=== PATIENT | female | born 1990 | race Caucasian/White ===

== ENCOUNTER 2018-09-10 06:18 | Day surgery (SDC) | payer BC, OTHER ==
[2018-09-05 09:25] VITALS: BMI 25.3
--- NOTE | 2018-09-09 20:19 | P.HPOB ---
History of Present Illness H&P Date: 09/09/18 Chief Complaint: SANTY III This is a 28 y.o. female, 2, para 2 who presents for loop electrocautery excision procedure with colposcopy due to SANTY III found on colposcopy in the office. Her pap smear on 06/04/2018 showed LGSIL. She underwent colposcopy on 07/19/2018 that showed negative ECC and SANTY II-III on biopsy at 8 o'clock. Based on these findings, she has elected to undergo LEEP/colposcopy. OB Hx: . History of 2 vaginal deliveries. 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 has had vasectomy. Social Hx: . 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 Review of Systems Constitutional: Denies chills, Denies fever Eyes: denies blurred vision, denies pain Ears, nose, mouth and throat: Denies headache, Denies sore throat Cardiovascular: Denies chest pain, Denies shortness of breath Respiratory: Denies cough Genitourinary: Reports dysmenorrhea, Denies dysuria, Denies hematuria Musculoskeletal: Denies myalgias Integumentary: Denies pruritus, Denies rash Neurological: Denies numbness, Denies weakness Psychiatric: Reports anxiety, Reports irritability Past Medical History Past Medical History: No Reported History History of Any Multi-Drug Resistant Organisms: None Reported Past Surgical History: Breast Surgery Additional Past Surgical History / Comment(s): bilateral breast augmentation and lift Past Anesthesia/Blood Transfusion Reactions: No Reported Reaction Additional Past Anesthesia/Blood Transfusion Reaction / Comment(s): states throat pain after intubation for a week or two Past Psychological History: Anxiety Smoking Status: Former smoker Past Alcohol Use History: Occasional Past Drug Use History: None Reported - Past Family History Father Family Medical History: Coronary Artery Disease (CAD), Hypertension Additional Family Medical History / Comment(s): cardiac, copd, rheum arth, fibromyal, htn Mother Family Medical History: Diabetes Mellitus, Hyperlipidemia, Hypertension, Thyroid Disorder Additional Family Medical History / Comment(s): crohns, htn, hypercholesteral, diabetes, hashimotos Medications and Allergies Home Medications Medication Instructions Recorded Confirmed Type No Known Home Medications 09/05/18 09/10/18 History Allergies Allergy/AdvReac Type Severity Reaction Status Date / Time No Known Allergies Allergy Verified 09/10/18 06:44 Exam Osteopathic Statement: *. No significant issues noted on an osteopathic structural exam other than those noted in the History and Physical/Consult. HEENT: within normal limits Heart: regular rate and rhythm Lungs: clear to auscultation bilaterally Abdomen: soft, non-tender Pelvic exam: uterus mid-position, non-tender, no adnexal masses Extremities: negative Patricia's Assessment and Plan (1) SANTY III (cervical intraepithelial neoplasia III) Current Visit: No Status: Acute Code(s): D06.9 - CARCINOMA IN SITU OF CERVIX, UNSPECIFIED SNOMED Code(s): 94121410 Plan: Proceed with loop electrocautery excision procedure with colposcopy. Risks and benefits of the procedure are discussed in detail and all questions are answered. I have discussed the risks, benefits, and alternative therapies for the above- mentioned procedure and for both sedation/anesthesia as well as necessary blood products administration, if indicated, as they pertain to this patient. The patient has indicated her understanding and acceptance of the risks and procedures discussed.
[~2018-09-10 06:18] MED LIST: DEXAMETHASONE SOD PHOSPHATE 10 MG/ML 1 ML VIAL IV ONE; HYDROmorphone 0.5 MG/0.5 ML SYRINGE IVP PRN; LACTATED RINGERS 1,000 ML IV SCH; ONDANSETRON 4 MG/2 ML VIAL IVP ONE; Pre Op ABX Message 1 EACH MISC MISCELLANE ONE; SCOPOLAMINE 1.5MG/72HR PATCH TRANSDERM ONE
[2018-09-10] MEDS ORDERED: LIDOCAINE 1% 20 ML VIAL (10MG/ML) FOR IV START SQ ONE (07:09)
[2018-09-10] MEDS ORDERED: fentaNYL (PF) 50 MCG/ML 2 ML AMP ONE (07:25)
[2018-09-10] MEDS ORDERED: LIDOCAINE 1% INJ 10MG/ML (20 ML MDV) ONE (07:25)
[2018-09-10] MEDS ORDERED: KETOROLAC 30 MG/ML 1 ML VIAL ONE (07:25)
[2018-09-10] MEDS ORDERED: MIDAZOLAM 2 MG/2 ML VIAL ONE (07:25)
[2018-09-10] MEDS ORDERED: PROPOFOL 10 MG/ML 20 ML VIAL IV ONE (07:25)
[2018-09-10] MEDS ORDERED: BUPIVACAINE (PF) 0.5% 30 ML VIAL SQ ONE ×2 (07:29→07:45)
[2018-09-10] MEDS ORDERED: LIDOCAINE 1%-EPI 1:100,000 20 ML VIAL SUBMUCOSAL ONE ×2 (07:29→07:45)
[2018-09-10] MEDS ORDERED: ACETIC ACID 15 DROPS/ML DROPS MISCELLANE ONE ×2 (07:29→07:45)
[2018-09-10] MEDS ORDERED: IODINE/POTASS IOD (LUGOLS) 8 ML BTL TOPICAL ONE (07:45)
--- NOTE | 2018-09-10 07:55 | P.OP ---
Date of Procedure: 09/10/18 Preoperative Diagnosis: SANTY-3 Postoperative Diagnosis: Same Procedure(s) Performed: Colposcopy with loop electrocautery excision procedure Anesthesia: MICKA Surgeon: Kaitlynn Kulkarni Estimated Blood Loss (ml): 10 Pathology: other (#1-Ectocervix with 12 o'clock position marked with a white suture and separate piece is the 9:00 border; #2-endocervix) Condition: stable Disposition: same day Indications for Procedure: This is a 28 y.o. female, 2, para 2 who presents for loop electrocautery excision procedure with colposcopy due to SANTY III found on colposcopy in the office. Her pap smear on 06/04/2018 showed LGSIL. She underwent colposcopy on 07/19/2018 that showed negative ECC and SANTY II-III on biopsy at 8 o'clock. Based on these findings, she has elected to undergo LEEP/colposcopy. Operative Findings: On colposcopy the cervix is noted to have acetowhite areas around the entire transition zone. No mosaicism was noted. The same areas are noted to be Lugol white. Description of Procedure: The patient is taken to the operating room where she is placed in the dorsal lithotomy position. She is prepped and draped in the normal sterile fashion. Her bladder is drained with a catheter. Next a coated bivalve speculum is placed in the patient's vagina. Colposcopy is then performed using a blue light. The cervix is swabbed with 5% acetic acid. The above noted findings are made. Next the cervix is swabbed with Lugol solution. The above noted findings are made. The cervix is then injected with a 50-50 mixture of half percent Marcaine and 1% lidocaine with epinephrine. Approximately 8 mL are used to inje ct circumferentially around the cervix using a spinal needle. Next a large loop was used with 45 W of cutting power to swipe from left to right to remove the entire ectocervix. A separate piece from the 9:00 border is supple a removed. The ectocervix is labeled with a white stitch on the 12 o'clock position. Next a small loop is used to remove the endocervix. Next a ball-tipped cautery was used to cauterize the bed left behind. Excellent hemostasis is noted. Monsel solution is applied for hemostasis also. All sponge and needle counts are correct. The patient is then taken to recovery room in stable condition.
[2018-09-10 08:14] VITALS: TEMP 96.8
[2018-09-10 08:19] VITALS: RESP 16
[2018-09-10 09:24] VITALS: BP 120/73; PULSE 54
== END 2018-09-10 09:31 | disposition home or self-care (01) ==
LOC: OR 06:18
PROVIDERS: ATTEND Obstetrics & Gynecology
DX: D06.0 Carcinoma in situ of endocervix (principal); Z87.891 Personal history of nicotine dependence; Z82.49 Family history of ischemic heart disease and other diseases of the circulatory system; Z83.3 Family history of diabetes mellitus
CPT/HCPCS: 81025; 88305; 88307; 57522; J2250; J1100; J2405; J2001; J3010; J1885; J2704

== ENCOUNTER 2020-01-09 06:11 | Day surgery (SDC) | payer OTHER ==
[2020-01-07 13:48] VITALS: BMI 25.3
[~2020-01-09 06:11] MED LIST changes: +DEXAMETHASONE SOD PHOSPHATE 20 MG in DEXTROSE 5% IN WATER 50 ML IV ONE; +FAMOTIDINE 20 MG/2 ML VIAL IV ONE; -HYDROmorphone 0.5 MG/0.5 ML SYRINGE IVP PRN; -LACTATED RINGERS 1,000 ML IV SCH; +LIDOCAINE 1% (10MG/ML) FOR IV START INTRADERMA PRN; -Pre Op ABX Message 1 EACH MISC MISCELLANE ONE; -SCOPOLAMINE 1.5MG/72HR PATCH TRANSDERM ONE
[2020-01-09 06:53] VITALS: RESP 16
[2020-01-09] MEDS: LACTATED RINGERS 1,000 ML IV SCH ×2 (07:04→08:50)
[2020-01-09] MEDS ORDERED: SCOPOLAMINE 1.5MG/72HR PATCH TRANSDERM ONE (07:13)
[2020-01-09] MEDS: ONDANSETRON 4 MG/2 ML VIAL IVP ONE ×2 (07:13→08:27)
[2020-01-09] MEDS ORDERED: DEXAMETHASONE SOD PHOSPHATE 10 MG/ML 1 ML VIAL ONE (07:22)
[2020-01-09] MEDS ORDERED: fentaNYL (PF) 50 MCG/ML 2 ML AMP ONE (07:22)
[2020-01-09] MEDS ORDERED: PROPOFOL 10 MG/ML 20 ML VIAL IV ONE (07:22)
[2020-01-09] MEDS ORDERED: SUCCINYLCHOLINE CHLORIDE 100 MG/5 ML SYR IV ONE (07:22)
[2020-01-09] MEDS ORDERED: MIDAZOLAM 2 MG/2 ML VIAL ONE (07:22)
[2020-01-09] MEDS ORDERED: LIDOCAINE 1% INJ 10MG/ML (20 ML MDV) ONE (07:22)
[2020-01-09] MEDS ORDERED: BUPIVACAINE (PF) 0.25% 30 ML VIAL SQ ONE ×2 (08:10→08:20)
[2020-01-09] MEDS ORDERED: LIDOCAINE 1%-EPI 1:100,000 20 ML VIAL SQ ONE ×2 (08:10→08:19)
[2020-01-09 08:25] VITALS: TEMP 97.6
--- NOTE | 2020-01-09 08:27 | P.OP ---
Date of Procedure: 01/09/20 Preoperative Diagnosis: Chronic tonsillitis Postoperative Diagnosis: Same Procedure(s) Performed: Tonsillectomy Anesthesia: DENIS Surgeon: Clark Shah Estimated Blood Loss (ml): 5 Pathology: other (Tonsils) Condition: stable Disposition: PACU Indications for Procedure: This patient has had recurring strep throat with tonsillar exudate and cryptitis. Patient's been placed on multiple antibiotics and recently treated with Augmentin with continued problems. She been seen by her family doctor and in the urgent care several times. Her incision is been going on for many years. She has cryptic tonsillitis and she gets constant exudate and foul-smelling material from the tonsils. The patient's requesting tonsillectomy. All risks, benefits, and alternative therapies were discussed. Consent was obtained and all questions were answered. Operative Findings: Patient was found to have large tonsils and cryptitis with exudate coming from the crypts of the tonsils. Description of Procedure: Prior to surgery all risks, benefits, and alternative therapies were discussed in detail. Risks of bleeding, infection, need for secondary surgery, airway problems, anesthetic complications, etc. etc. were discussed in detail. Consent was obtained and all questions were answered. OPERATIVE PROCEDURE: This patient was taken to the operative room and placed in the supine position. A functioning IV line was in placed and the patient was monitored throughout the entire case by the department of anesthesia. The patient underwent general anesthetic with intubation and tube was secured. A McIvor mouth gag was placed into the patients mouth with care to avoid any trauma to the lips, teeth, gums or tongue. Mouth was opened and tongue was depressed. The tonsils were grasped with an Allis forceps and brought medially bilaterally. A subcapsular dissection was performed utilizing an Evac-70 handpiece with an Arthrotec setting of 7. The tonsils were removed without incident bilaterally and the tonsillar fossae were inspected and bleeding was nonexistent and stopped spontaneously with Coblation. A Marcaine and lidocaine mixture was injected into the peritonsillar area for anesthesia postoperatively. McIvor mouthgag was removed. The stomach was suctioned and the patient was taken to postanesthesia recovery in excellent condition having tolerated this procedure well. The patient will follow up in the office in one week as scheduled.
[2020-01-09 09:16] VITALS: BP 131/71; PULSE 60
== END 2020-01-09 09:40 | disposition home or self-care (01) ==
LOC: OR 06:11
PROVIDERS: ATTEND Otolaryngology
DX: J35.01 Chronic tonsillitis (principal); J35.8 Other chronic diseases of tonsils and adenoids; Z79.1 Long term (current) use of non-steroidal anti-inflammatories (NSAID); Z79.52 Long term (current) use of systemic steroids; Z79.899 Other long term (current) drug therapy; Z72.0 Tobacco use; Z98.890 Other specified postprocedural states; Z82.61 Family history of arthritis; Z83.3 Family history of diabetes mellitus; Z83.79 Family history of other diseases of the digestive system; Z82.49 Family history of ischemic heart disease and other diseases of the circulatory system
CPT/HCPCS: 81025; 88304; 42826; J2250; J1100; J2405; J0690; J2001; J3010; J0330; J2704